=== PATIENT | female | born 1965 | race American Indian/Alaskan Native ===

== ENCOUNTER 2016-09-17 12:40 | Day surgery (SDC) | payer OTHER ==
[~2016-09-17 12:40] MED LIST: VANCOMYCIN/NS 1 GM/250 ML 1 GM/250 ML BAG IV NR
[2016-09-17] MEDS ORDERED: DILAUDID ONE (13:20)
[2016-09-17] MEDS ORDERED: XYLOCAINE MPF 2% ONE (13:20)
[2016-09-17] MEDS ORDERED: DIPRIVAN 10 MG/ML IV ONE (13:20)
[2016-09-17] MEDS ORDERED: ADRENALIN ONE ×3 (13:37→15:00)
[2016-09-17] MEDS ORDERED: MARCAINE-EPI 0.25%-1:200,000 INFILTRATI ONE ×2 (13:37→15:00)
[2016-09-17] MEDS ORDERED: XYLOCAINE 1% 20 mL ONE (13:44)
[2016-09-17] MEDS ORDERED: NACL 0.9% 1000 ML 1,000 ML ONE (14:19)
[2016-09-17] MEDS ORDERED: LACTATED RINGERS 1,000 ML ONE (14:26)
--- NOTE | 2016-09-17 14:33 | Anesthesia Consultation ---
Anesthesia Consult and Med Hx Date of service: 09/17/16 - Airway Anesthetic Teeth Evaluation: Good, Crowns, Bridges ROM Head & Neck: Adequate Mental/Hyoid Distance: Adequate Mallampati Class: Class II Intubation Access Assessment: Probably Good - Pulmonary Exam CTA: Yes - Cardiac Exam Cardiac Exam: RRR - Pre-Operative Health Status ASA Pre-Surgery Classification: ASA3 Proposed Anesthetic Plan: General - Pulmonary Hx Smoking: No Hx Sleep Apnea: Yes (DX SLEEP APNEA- NO REGULAR CPAP USE) - Cardiovascular System Hx Hypertension: Yes (X 2 YRS) - Hematic Hx Sickle Cell Disease: No (SC TRAIT ONLY) - Other Systems Hx Cancer: Yes (h/o right breast CA ) Hx Obesity: Yes
[2016-09-17] MEDS ORDERED: ZOFRAN IV PRN ×2 (14:34→14:46)
[2016-09-17] MEDS ORDERED: MORPHINE IV PRN (14:34)
--- NOTE | 2016-09-17 14:34 | Anesthesia Day of Surgery ---
Anesthesia Day of Surgery - Day of Surgery Patient Examined: Yes Patient H&P Reviewed: Yes Patient is NPO: Yes
[2016-09-17] MEDS ORDERED: DILAUDID IV PRN (14:46)
[2016-09-17 14:57] LABS: Hematocrit 39.3 % (30.3-42.9); Hemoglobin 12.1 gm/dl (10.1-14.3)
[2016-09-17] MEDS ORDERED: TRANSDERM-SCOP TD NR (15:00)
[2016-09-17] MEDS ORDERED: LACTATED RINGERS 1,000 ML IV SCH ×2 (15:00)
[2016-09-17] MEDS ORDERED: XYLOCAINE 2% INFILTRATI ONE ×2 (15:00→15:47)
[2016-09-17] MEDS ORDERED: VERSED IV NR (15:00)
[2016-09-17] MEDS ORDERED: REGLAN PO NR (15:00)
[2016-09-17] MEDS ORDERED: NACL 0.9% 1000 ML 1,000 ML IV SCH (15:00)
[2016-09-17] MEDS ORDERED: PEPCID PO NR (15:00)
[2016-09-17] MEDS ORDERED: VANCOMYCIN/NS 1 GM/250 ML 1 GM/250 ML BAG IV ONE (15:28)
--- NOTE | 2016-09-17 15:40 | Post Anesthesia Evaluation ---
- Post Anesthesia Evaluation Patient Participated: Yes Airway Patent: Yes Stable Respiratory Function: Yes Nausea/Vomiting: No Temp > 96.8F: Yes Pain Manageable: Yes Adequeate Hydration: Yes Anesthesia Complications: No Block Receding Appropriately: Not Applicable Patient on Ventilator: No
[2016-09-17] MEDS ORDERED: ADRENALIN IV ONE (15:47)
[2016-09-17] MEDS ORDERED: MARCAINE-EPI 0.25%-1:200,000 IJ ONE (15:47)
[2016-09-17] MEDS ORDERED: ZOFRAN ONE (16:11)
[2016-09-17] MEDS ORDERED: TORADOL ONE (16:11)
--- NOTE | 2016-09-17 16:12 | Short Stay Summary ---
Short Stay Documentation Date of service: 09/17/16 Narrative H&P: 51yo female with persistent progressively worsening left pain with mechanical symptoms. The left knee limits day to day activity and has failed to improve with nonoperative treatment. The patient's MRI is positive for medial meniscus tear. The patients MRI findings and diagnosis were discussed at length. Treatment alternatives discussed surgical nonsurgical including the risks and benefits of both. The patient understands all questions answered. She wishes to proceed with surgery at this time. - History Principal diagnosis: left knee medial meniscus tear H&P: obtained from office - Allergies and Medications Current Medications: Allergies latex Allergy (Verified 09/11/16 10:13) Hives Penicillins Allergy (Verified 09/11/16 10:13) Shortness of Breath povidone-iodine [From Betadine] Allergy (Verified 09/11/16 10:13) Rash soap [From Betadine] Allergy (Verified 09/11/16 10:13) Rash sulfamethoxazole [From Bactrim] Allergy (Verified 09/11/16 10:13) Anaphylaxis trimethoprim [From Bactrim] Allergy (Verified 09/11/16 10:13) Anaphylaxis Home Medications Medication Instructions Recorded Confirmed Last Taken Type Aspirin [Adult Low Dose Aspirin EC] 81 mg PO DAILY 09/11/16 09/11/16 Unknown History AtorvaSTATin [Lipitor] 20 mg PO DAILY 09/11/16 09/11/16 Unknown History Olmesartan (Nf) [Benicar (Nf)] 20 mg PO QDAY 09/11/16 09/11/16 Unknown History metFORMIN [Glucophage] 250 mg PO DAILY 09/11/16 09/11/16 Unknown History Active Medications Famotidine (Pepcid) 20 mg PO PREOP NR Stop: 09/17/16 23:59 Last Admin: 09/17/16 15:09 Dose: 20 mg Hydromorphone HCl (Dilaudid) 0.5 mg IV Q10MIN PRN PRN Reason: Pain , Severe (7-10) Stop: 09/20/16 14:47 Lactated Ringer's (Lactated Ringers) 1,000 mls @ 42 mls/hr IV DIRECT LARON Lactated Ringer's (Lactated Ringers) 1,000 mls @ 75 mls/hr IV DIRECT LARON Metoclopramide HCl (Reglan) 10 mg PO PREOP NR Stop: 09/17/16 23:59 Last Admin: 09/17/16 15:10 Dose: 10 mg Midazolam HCl (Versed) 2 mg IV PREOP NR Stop: 09/17/16 23:59 Last Admin: 09/17/16 15:10 Dose: 2 mg Scopolamine (Transderm-Scop) 1 each TD PREOP NR Stop: 09/17/16 23:59 Last Admin: 09/17/16 15:12 Dose: 1 each - Physical exam General appearance: no acute distress Integumentary: no rash, no growths, no abnormal pigmentation HEENT: Atraumatic Lungs: Normal air movement Breasts: deferred Heart: Regular rate Gastrointestinal: normal Female Genitourinary: deferred Rectal Exam: deferred Extremities: no ischemia, pulses intact, pulses symmetrical, No edema, normal temperature, normal color, Full ROM Neurological: Normal gait, Normal speech, Strength at 5/5 X4 ext, Normal tone, Sensation intact, Cranial nerves 3-12 NL, Reflexes 2+ - Brief post op/procedure progress note Date of procedure: 09/17/16 Pre-op diagnosis: persistent left knee pain, medial mensicus tear Post-op diagnosis: same Procedure: left knee arthroscopy partial medial meniscectomy Anesthesia: GETA Findings: as above Surgeon: TETE PÉREZ Estimated blood loss: none Pathology: none Condition: stable - Hospital course Hospital course: no perioperative complications - Disposition Condition at discharge: Good Disposition: [id number] TO HOME OR SELFCARE
[2016-09-17 18:58] VITALS: BP 118/73
--- NOTE | 2016-09-17 22:05 | Operative Report ---
PREOPERATIVE DIAGNOSIS: Persistent left knee pain with mechanical symptoms with a medial meniscus tear. POSTOPERATIVE DIAGNOSES: Persistent left knee pain with mechanical symptoms with a large complex tear located within the posterior horn of the medial meniscus. Grade 2 articular cartilage loss of the weightbearing portion of the medial femoral condyle as well as central aspect of the patella and trochlea. PROCEDURE: Left knee arthroscopy, partial medial meniscectomy. SURGEON: Brian Larose M.D. OFFAL TRIMMER: Floridalma Duran, master certified rv technician. ANESTHESIA: General. PREOPERATIVE ANTIBIOTICS: Vancomycin 1 gram IV within 1 hour of skin incision. DVT PROPHYLAXIS: Open toe, thigh compression stockings and SCD pumps to the nonoperative right lower extremity. OPERATIVE SPECIMENS: None. ESTIMATED BLOOD LOSS: Minimal. OPERATIVE COMPLICATIONS: None. OPERATIVE HISTORY AND PHYSICAL: This is a 51-year-old female who has had persistent progressively worsening left knee pain with mechanical symptoms, which has failed to improve despite extensive nonoperative treatment, pain and mechanical symptoms markedly limit her day-to-day activities. MRI scan was performed, which was positive for a large complex tear located within the posterior horn of the medial meniscus. The patient's MRI findings and diagnosis were discussed at length. After making sure the patient understood the diagnosis and all her questions were answered. We discussed treatment alternatives of surgical and nonsurgical including risks and benefits of both. After a long lengthy discussion, the patient opted to proceed with operative intervention. This will entail a left knee arthroscopy, partial medial meniscectomy and surgery as indicated. The risk of which were discussed to include but not exclusive of infection, blood loss, nerve damage, loss of range of motion, persistent pain and the patient understood all of her questions were answered. She wished to proceed with operative intervention. OPERATIVE PROCEDURE: The patient was seen in the preoperative holding room area at which point informed consent was reviewed. The appropriate left lower extremity was identified and then marked. The patient was then brought back to the operating room and placed supine on a standard operating room table at which point, general anesthesia was administered. An LMA tube was inserted. After confirmation of appropriate general anesthesia checking appropriate placement of the LMA tube, we then made sure that all bony prominences were well padded. There were no wrinkles in the compression stockings on the right lower extremity and SCD pumps were applied to the right lower extremity. The arms were secured in neutral position. The patient with the arm board. The head was secured in nice neutral position as well. The left lower extremity was then examined under anesthesia. The patient was seen to have full range of motion 0-130 degrees of flexion. There was no ligament instability, negative Klever, negative anterior drawer, negative posterior drawer. No varus or valgus instability at 0 as well as 30 degrees of flexion. Following examination under anesthesia, the left lower extremity was prepped and draped in the usual sterile fashion. After prepping and draping, a timeout was called and appropriate left lower extremity was identified, which again had been marked in the preoperative holding room area. We began our procedure by first making a standard anterolateral portal with a #15 blade. Once the portal was established, a cannula with a blunt trocar was inserted into the intra-articular aspect of the knee joint. This went without difficulty or damage to articular cartilage. The arthroscopic camera was immediately placed in the medial compartment, we established anteromedial portal by first inserting an 18 gauge spinal needle under arthroscopic visualization. Once confirmed the appropriate position superior to the medial meniscus the 11 blade was then used to establish an anteromedial portal. Once the portal was established, a blunt trocar was inserted via the portal site. Following that, an arthroscopic probe, we began diagnostic arthroscopy in the medial compartment. The patient was seen to have a large complex tear located within the posterior horn of the medial meniscus. This is irreparable and we performed a partial medial meniscectomy in standard fashion using series of basket punches and 4.0 meniscal shaver down to a nice smooth, stable healthy remaining border. There was no tear in the anterior horn of the medial meniscus. There was grade 2 articular cartilage loss almost in the entire weightbearing portion of the medial femoral condyle. Inspection of the notch, the ACL and PCL to be intact and stable when probed. There were several fairly large osteophytes located diffusely surrounding the notch. Inspection of the lateral compartments there were no were no tears in the anterior or posterior horn of the lateral meniscus. There was normal articular cartilage of the lateral femoral condyle and tibial plateau. The popliteus seen to be intact and stable when probed. There were no loose bodies in the medial or lateral gutters. Inspection of patellofemoral joint showed to be grade 2/3 articular cartilage loss in the central aspect of the patella and trochlea. Inspection of suprapatellar pouch showed to be no loose bodies present. The arthroscopic camera was then placed in the posterior aspect of the knee, just cruciate ligament and femoral condyle. Once the posterior aspect of the knee was felt there were no root tears menisci and there were no loose bodies present. Arthroscopic camera was then removed from the posterior aspect of the knee. Arthroscopic pump was turned off. The patient has good hemostasis. Once this was confirmed, the extraneous fluid was suctioned from the knee using arthroscopic cannula. Following this, all the arthroscopic instrumentation was removed. The 2 portal sites were closed with 3-0 nylon in simple fashion. Adaptic, 4 x 4, ABD open toe thigh compression stocking was applied. The patient was then awakened from general anesthesia without complication and taken to the recovery room in stable condition. Standard postoperative orders were written. JOB# [id number] SHANITA/ARELIS
== END 2016-09-17 20:05 | disposition home or self-care (01) ==
LOC: OR 12:40
PROVIDERS: ATTEND Orthopaedic Surgery
DX: S83.232A Complex tear of medial meniscus, current injury, left knee, initial encounter (principal); M94.8X6 Other specified disorders of cartilage, lower leg; I10 Essential (primary) hypertension; E11.9 Type 2 diabetes mellitus without complications; E66.9 Obesity, unspecified; Z68.39 Body mass index [BMI] 39.0-39.9, adult; Z88.1 Allergy status to other antibiotic agents; Z91.040 Latex allergy status; Z88.0 Allergy status to penicillin; Z88.8 Allergy status to other drugs, medicaments and biological substances; Z91.09 Other allergy status, other than to drugs and biological substances; Z85.3 Personal history of malignant neoplasm of breast; Z79.899 Other long term (current) drug therapy; Z79.82 Long term (current) use of aspirin; Z79.84 Long term (current) use of oral hypoglycemic drugs
CPT/HCPCS: 29881; 36415; 82962; 85014; 85018; J0171; J1170; J1885; J2250; J2405; J2704; J3370; J7030; J7120